=== PATIENT | male | born 1970 | race Caucasian/White ===

== ENCOUNTER 2023-12-28 15:43 | Emergency (ER) | payer OTHER ==
[~2023-12-28] VITALS: Ht 177.8 cm; Wt 77.1 kg
[2023-12-28] MEDS ORDERED: PROZAC40 MG PO (16:03)
[2023-12-28] MEDS ORDERED: GUANFACINE HCL E2 MG PO (16:03)
[2023-12-28] MEDS ORDERED: DIAZEPAM5 M2 PO (16:03)
[2023-12-28] MEDS ORDERED: Ondansetron HCl 2 MG / ML 2ML Vial IV PRN (16:05)
[2023-12-28 16:18] LABS: BASOPHILS ABSOLUTE AUTO 0.05 K/mm3 (0.00-0.23); BASOPHILS PERCENT AUTO 0 % (0-2); EOSINOPHILS ABSOLUTE AUTO 0.05 K/mm3 (0.00-0.68); EOSINOPHILS PERCENT AUTO 0 % (0-6); Hematocrit 43.1 % (37.0-53.0); Hemoglobin 15.1 g/dL (13.5-17.5); IMMATURE GRAN ABSOLUTE AUTO 0.15 K/mm3 (0.00-0.10); IMMATURE GRAN PERCENT AUTO 1 % (0-1); LYMPHOCYTES ABSOLUTE AUTO 2.35 K/mm3 (0.84-5.20); LYMPHOCYTES PERCENT AUTO 10 % (21-46); MONOCYTES ABSOLUTE AUTO 2.43 K/mm3 (0.16-1.47); MONOCYTES PERCENT AUTO 10 % (4-13); Mean Corpuscular HGB 29.7 pg (26.0-34.0); Mean Corpuscular Volume 85 fL (80-100); Mean Platelet Volume 9.6 fL (9.1-12.4); NEUTROPHILS ABSOLUTE AUTO 18.67 K/mm3 (1.96-9.15); NEUTROPHILS PERCENT AUTO 79 % (41-73); Platelet Count 297 K/mm3 (150-400); RDW Coefficient Variation 13.1 % (11.7-14.2); RDW Standard Deviation 40.3 fL (35.1-46.3); Red Blood Cell Count 5.08 M/mm3 (4.30-5.90)
[2023-12-28] MEDS ORDERED: NS 1,000 ML IV SCH (16:25)
[2023-12-28 16:26] LABS: Albumin, Blood 4.2 g/dL (3.4-5.0); Albumin/Globulin Ratio 1.1 (0.8-1.8); Bilirubin, Total 0.9 mg/dL (0.1-1.0); Bun/Creatinine Ratio 28.4 (12.0-20.0); Calcium, Blood 10.6 mg/dL (8.5-10.1); Creatinine, Blood 0.78 mg/dL (0.60-1.20); Globulin, Blood 3.8 g/dL (2.2-4.0); Potassium, Blood 2.8 mmol/L (3.5-5.5)
[2023-12-28] MEDS ORDERED: Droperidol 5 mg/2 ml Vial IV ONE (16:30)
[2023-12-28] MEDS ORDERED: LORazepam 2 MG/ML 1ML Injection IV ONE (18:10)
[2023-12-28] MEDS ORDERED: Lactated Ringer's 1,000 ML IV ONE (18:15)
[2023-12-28] MEDS ORDERED: Piperacillin/Tazobactam Sod 4.5 GM in NS 100 ML IV ONE (18:15)
[2023-12-28] MEDS ORDERED: Potassium Chl 20MEQ/Water100ML 100 ML IV SCH (18:15)
[2023-12-28] MEDS ORDERED: DiphenhydrAMINE HCl 50 MG/ML 1ML Vial IV ONE (18:55)
[2023-12-28] MEDS ORDERED: Ketorolac Tromethamine 15mg Vial IV ONE (18:55)
[2023-12-28 21:10] LABS: Source, Urine Clean Catch
[2023-12-28 21:24] LABS: Bilirubin, Urine Neg (Neg); Blood, Urine Neg (Neg); Glucose Qualitative, Urine Neg (Neg); Ketones, Urine 1+ (Neg); Leukocyte Esterase, Urine Neg (Neg); Nitrite, Urine Neg (Neg); Protein, Urine 1+ (Neg); Urobilinogen, Urine NORM (Normal)
[2023-12-28 21:30] LABS: Amorphous Heavy (0-Heavy); Appearance, Urine Hazy (Clear); Bacteria Not Seen /hpf; Color, Urine Yellow (P-Yellow); Red Blood Cells, Urine Not Seen /hpf (0-2); Squamous Epithelial Cells Not Seen /hpf (Few); White Blood Cells, Urine 0-2 /hpf (0-5)
[2023-12-28] MEDS ORDERED: Potassium Chloride 20 MEQ/15 ML UDC PO ONE (22:25)
[2023-12-29] MEDS ORDERED: Potassium Chloride 20 MEQ TabCR PO ONE (01:00)
[2023-12-29] MEDS ORDERED: K-TAB ER20 ME1 PO (01:05)
== END 2023-12-29 01:27 | disposition home or self-care (01) ==
LOC: ER 15:43
PROVIDERS: Emergency Medicine
DX: R11.2 Nausea with vomiting, unspecified (principal); E87.6 Hypokalemia; F17.210 Nicotine dependence, cigarettes, uncomplicated; Z79.899 Other long term (current) drug therapy; Z88.8 Allergy status to other drugs, medicaments and biological substances
CPT/HCPCS: 36415; 74177; 80053; 81001; 83605; 83690; 83735; 84484; 85025; 87040; 93005; 93010; 96361; 96365-59; 96366; 96368; 96375; 99285-25; A9270; J1200; J1790; J1885; J2060; J2405; J2543; J3480; J7030; J7120; Q9967